=== PATIENT | male | born 1950 | race Hispanic/Latino ===

== ENCOUNTER 2023-01-13 19:42 | Emergency (ER) | payer OTHER ==
[2023-01-13 20:26] LABS: BASOPHILS % (AUTO) 0.2 % (0.0-5.0); EOSINOPHILS % (AUTO) 0.4 % (0.0-8.0); LYMPHOCYTES % (AUTO) 14.6 % (21.0-51.0); MEAN CORPUSCULAR HEMOGLOBIN 29.8 pg (27.0-33.0); MEAN CORPUSCULAR HGB CONC 34.4 g/dL (32.0-36.0); MEAN CORPUSCULAR VOLUME 86.7 fL (79-99); MONOCYTES % (AUTO) 7.6 % (3.0-13.0); PLATELET COUNT (AUTO) 187 K/uL (130-400); RED BLOOD CELL COUNT(AUTO) 4.73 MIL/uL (4.50-6.20); RED CELL DISTRIBUTION WIDTH 12.2 % (11.0-15.5); WHITE BLOOD COUNT (AUTO) 8.3 K/uL (4.8-10.8)
[2023-01-13 20:33] LABS: CREATININE 0.9 mg/dL (0.5-1.5); POTASSIUM 3.4 mmol/L (3.5-5.1)
[2023-01-13 20:40] LABS: ALBUMIN 3.4 g/dL (3.5-5.0)
[2023-01-13] MEDS ORDERED: ASPI-1005 PO (22:34)
[2023-01-13] MEDS ORDERED: NITR.4 SL (22:34)
[2023-01-13 23:09] VITALS: BP 132/72
== END 2023-01-13 23:11 | disposition home or self-care (01) ==
LOC: EDH 19:42
DX: R07.89 Other chest pain (principal); F03.90 Unspecified dementia, unspecified severity, without behavioral disturbance, psychotic disturbance, mood disturbance, and anxiety
CPT/HCPCS: 36415; 71045; 80053; 84484; 85025; 85378; 93005

== ENCOUNTER → 2023-06-01 | Outpatient (CLI) | payer OTHER ==
[~2023-06-01] MED LIST: ASPI-1005 PO; NITR.4 SL
== END | disposition home or self-care (01) ==
LOC: LAB 13:22
PROVIDERS: ATTEND Internal Medicine
DX: R07.9 Chest pain, unspecified (principal)
CPT/HCPCS: 36415; 82565; 84520

== ENCOUNTER → 2023-06-17 | Outpatient (CLI) | payer OTHER ==
[~2023-06-17] MED LIST changes: +IOHEXOL 350 MG/ML 100ML INFUS..BTL IV ONE
== END | disposition home or self-care (01) ==
LOC: RAH 10:15
PROVIDERS: ATTEND Internal Medicine
DX: R07.9 Chest pain, unspecified (principal)
CPT/HCPCS: 75574; Q9967